=== PATIENT | female | born 1965 | race Caucasian/White ===

== ENCOUNTER 2016-04-08 07:01 | Day surgery (SDC) | payer MEDICAID ==
[2016-04-08] MEDS ORDERED: LACTATED RINGERS 1,000 ML IV ONE (07:27)
[2016-04-08] MEDS ORDERED: fentaNYL 250 MCG/5 ML VIAL IVP ONE (12:00)
[2016-04-08] MEDS ORDERED: MIDAZOLAM 2 MG/2 ML VIAL IVP ONE (12:00)
== END 2016-04-08 07:02 | disposition home or self-care (01) ==
PROC: 0DJD8ZZ Inspection of Lower Intestinal Tract, Via Natural or Artificial Opening Endoscopic (ICD-10-PCS; principal; 2016-04-08 08:00)
DX: Z12.11 Encounter for screening for malignant neoplasm of colon (principal); I10 Essential (primary) hypertension; Z79.82 Long term (current) use of aspirin; Z88.5 Allergy status to narcotic agent
CPT/HCPCS: 45378; J3010; J7120

== ENCOUNTER 2016-08-03 10:08 | Emergency (ER) | payer MEDICAID ==
[2016-08-03 10:15] VITALS: BP 147/89
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
--- NOTE | 2016-08-03 11:42 | XRAY Preliminary Report ---
Exam: XR Elbow 3 View RT IMPRESSION: There is mildly displaced right radial head fracture. No evidence of dislocation. [facility] SITE ID: [id number]
--- NOTE | 2016-08-03 11:45 | XRAY Report ---
EXAM: RIGHT ELBOW RADIOGRAPHY EXAM DATE: 08/03/2016 11:15 AM. CLINICAL HISTORY: Fell 8 days ago; Pain right radial elbow. COMPARISON: None. TECHNIQUE: 3 views. FINDINGS: Bones: There is mildly displaced fracture through the radial head. Joints: No evidence of dislocation. Posterior fat pad displacement indicates persistent effusion. Soft Tissues: Normal. No soft tissue swelling. IMPRESSION: There is mildly displaced right radial head fracture. No evidence of dislocation. [facility] Referring Provider Line: [phone] SITE ID: [id number]
== END 2016-08-03 12:33 | disposition home or self-care (01) ==
LOC: ED 10:08
DX: S52.121A Displaced fracture of head of right radius, initial encounter for closed fracture (principal); W01.0XXA Fall on same level from slipping, tripping and stumbling without subsequent striking against object, initial encounter; Z79.82 Long term (current) use of aspirin
CPT/HCPCS: 29105; 99283

== ENCOUNTER 2016-11-10 14:00 | Outpatient (CLI) | payer MEDICAID | END 2016-11-10 14:01 | disposition critical access hospital (66) | LOC: EMS 14:00 | PROVIDERS: ATTEND Surgery | DX: S01.01XA Laceration without foreign body of scalp, initial encounter (principal); M25.551 Pain in right hip; M25.521 Pain in right elbow; Y04.2XXA Assault by strike against or bumped into by another person, initial encounter; W18.39XA Other fall on same level, initial encounter; Y92.481 Parking lot as the place of occurrence of the external cause | CPT/HCPCS: A0425; A0429 ==

== ENCOUNTER 2016-11-10 14:15 | Emergency (ER) | payer MEDICAID ==
[2016-11-10] MEDS ORDERED: TETANUS/DIPHTHERIA/PERTUSSIS 0.5 ML SYRINGE IM ONE ×2 (14:21→14:51)
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
--- NOTE | 2016-11-10 15:14 | XRAY Preliminary Report ---
Exam: XR Hip w/Pelvis 2-3V RT IMPRESSION: 1. Negative for acute fracture and subluxation. Chronic spurring of the right femoral head and neck w ith joint space narrowing. [facility] SITE ID: [id number]
--- NOTE | 2016-11-10 15:16 | XRAY Preliminary Report ---
Exam: XR Elbow 3 View RT IMPRESSION: 1. Chronic appearing deformity of proximal radius suggesting old radial head fracture versus developm ental variant. No acute fracture or joint effusion. [facility] SITE ID: [id number]
--- NOTE | 2016-11-10 15:17 | XRAY Report ---
EXAM: RIGHT HIP AND PELVIS RADIOGRAPHY EXAM DATE: 11/10/2016 03:07 PM. HISTORY: Hip pain fall. COMPARISONS: None. TECHNIQUE: 1 view of the pelvis and 1 view of the hip. FINDINGS: Bones: No acute fracture is demonstrated. There is qhrx-il-hdlsdupo spurring on the lateral aspect of the right femoral head. Joints: There is joint space narrowing in the superior right hip joint. Soft Tissues: There are vascular calcifications in the left pelvis. IMPRESSION: 1. Negative for acute fracture and subluxation. Chronic spurring of the right femoral head and neck w ith joint space narrowing. [facility] Referring Provider Line: [phone] SITE ID: [id number]
--- NOTE | 2016-11-10 15:19 | XRAY Report ---
EXAM: RIGHT ELBOW RADIOGRAPHY EXAM DATE: 11/10/2016 03:05 PM. CLINICAL HISTORY: Elbow pain, fall. COMPARISON: None. TECHNIQUE: 3 views. FINDINGS: Bones: There is a corticated lucency at the articular surface of the proximal radial head. No acute f racture. Joints: Alignment is satisfactory. No posterior fat pad sign seen. Soft Tissues: Normal. No soft tissue swelling. IMPRESSION: 1. Chronic appearing deformity of proximal radius suggesting old radial head fracture versus developm ental variant. No acute fracture or joint effusion. [facility] Referring Provider Line: [phone] SITE ID: [id number]
--- NOTE | 2016-11-10 15:43 | CT Preliminary Report ---
Exam: CT Head W/O IMPRESSION: 1. Small posterior right scalp hematoma. No fracture. 2. Negative for intracranial hemorrhage or other focal acute intracranial abnormality. [facility] SITE ID: [id number]
--- NOTE | 2016-11-10 15:46 | CT Report ---
EXAM: CT HEAD EXAM DATE: 11/10/2016 03:12 PM. CLINICAL HISTORY: Trauma with head injury. COMPARISON: None. TECHNIQUE: Multiaxial CT images were obtained from the foramen magnum to the vertex. IV contrast: Non e. Reformats: Coronal. In accordance with CT protocol optimization, one or more of the following dose reduction techniques w ere utilized for this exam: automated exposure control, adjustment of mA and/or KV based on patient s ize, or use of iterative reconstructive technique. FINDINGS: Parenchyma: No intraparenchymal hemorrhage. No evidence of mass, midline shift, or CT findings of inf arction. Yepez-white differentiation is distinct. Extraaxial Spaces: Normal for age. No subdural or epidural collections identified. Ventricles: Normal in size and position. Sinuses: Imaged paranasal sinuses, orbits, and mastoids show no significant abnormality. Bones: There is a small posterior right scalp hematoma. No calvarium fracture. Other: None. IMPRESSION: 1. Small posterior right scalp hematoma. No fracture. 2. Negative for intracranial hemorrhage or other focal acute intracranial abnormality. [facility] Referring Provider Line: [phone] SITE ID: [id number]
--- NOTE | 2016-11-10 15:47 | CT Preliminary Report ---
Exam: CT Facial Bones W/O IMPRESSION: 1. No facial fracture. 2. Trace fluid in the right maxillary sinus. [facility] SITE ID: [id number]
--- NOTE | 2016-11-10 15:50 | CT Report ---
EXAM: CT MAXILLOFACIAL WITHOUT CONTRAST EXAM DATE: 11/10/2016 03:09 PM. CLINICAL HISTORY: Jaw pain, injury. COMPARISONS: None. TECHNIQUE: Thin-section axial images were acquired of the face without contrast. Post-processing: Cor onal and sagittal reformats. Other: None. In accordance with CT protocol optimization, one or more of the following dose reduction techniques w ere utilized for this exam: automated exposure control, adjustment of mA and/or KV based on patient s ize, or use of iterative reconstructive technique. FINDINGS: Bones: No fracture or bone lesion. Temporomandibular Joints: The temporomandibular joints are symmetric and normally located. Sinuses: There is a small mucous retention cyst in the left maxillary sinus. There is a trace amount of fluid in the right maxillary sinus. Mastoid sinuses appear clear. Other: None. IMPRESSION: 1. No facial fracture. 2. Trace fluid in the right maxillary sinus. [facility] Referring Provider Line: [phone] SITE ID: [id number]
--- NOTE | 2016-11-10 15:53 | CT Preliminary Report ---
Exam: CT Cervical Spine W/O IMPRESSION: Degenerative disk disease of the mid cervical spine without acute fracture. [facility] SITE ID: [id number]
--- NOTE | 2016-11-10 15:56 | CT Report ---
EXAM: CT CERVICAL SPINE WITHOUT CONTRAST DATE: 11/10/2016 03:25 PM HISTORY: Neck pain fall. COMPARISONS: None. TECHNIQUE: Thin-section axial images were acquired of the cervical spine without contrast. Post-proce ssing: Coronal and sagittal reformats. Other: None. In accordance with CT protocol optimization, one or more of the following dose reduction techniques w ere utilized for this exam: automated exposure control, adjustment of mA and/or KV based on patient s ize, or use of iterative reconstructive technique. FINDINGS: Alignment: There is 2 mm of anterolisthesis at C4-C5. There is straightening of lower cervical spine lordosis. Bones: Negative for fracture. No destructive bony abnormality. Interspace Levels/Facets: There is moderate bilateral facet degenerative disease and joint space narrowing. There is mild to mo derate disk height loss with disk osteophyte spurring at C5-C6 and C6-C7. Musculature: Normal. No fatty atrophy. Other: No apical pneumothorax. Trachea is midline. No paravertebral hematoma. IMPRESSION: Degenerative disk disease of the mid cervical spine without acute fracture. [facility] Referring Provider Line: [phone] SITE ID: [id number]
[2016-11-10 16:17] VITALS: BP 176/115
== END 2016-11-10 16:16 | disposition home or self-care (01) ==
LOC: EDUNIT# → ED 14:15
DX: S16.1XXA Strain of muscle, fascia and tendon at neck level, initial encounter (principal); S50.01XA Contusion of right elbow, initial encounter; S70.01XA Contusion of right hip, initial encounter; S00.03XA Contusion of scalp, initial encounter; S00.83XA Contusion of other part of head, initial encounter; S50.311A Abrasion of right elbow, initial encounter; S00.01XA Abrasion of scalp, initial encounter; Y04.2XXA Assault by strike against or bumped into by another person, initial encounter; R03.0 Elevated blood-pressure reading, without diagnosis of hypertension; Z79.82 Long term (current) use of aspirin; Z23 Encounter for immunization
CPT/HCPCS: 70450; 70486; 72125; 90471; 99283

== ENCOUNTER → 2017-01-12 | Outpatient (CLI) | payer MEDICAID ==
--- NOTE | 2017-01-26 15:33 | Mammography Report ---
DATE OF SERVICE: 01/12/2017 EXAMINATION: Screening digital mammogram bilateral 01/12/2017 INDICATION: A 51-year-old with personal history of benign right breast biopsy for screening. COMPARISON: Films from [place], [place] dated 07/10/2013. TECHNIQUE: Routine CC and MLO projections were obtained of the breasts. FINDINGS: The breasts demonstrate scattered fibroglandular densities bilaterally. Post-biopsy changes in the right breast are stable; no suspicious masses, clustered microcalcifications, or regions of architectural distortion are identified. IMPRESSION: Benign findings. RECOMMENDATIONS: Routine annual screening unless otherwise clinically indicated. BIRADS category 2 - Benign findings. STANDARD QUALIFYING STATEMENTS 1. This examination was reviewed with the aid of Computed-Aided Detection (CAD) . 2. A negative or benign imaging report should not delay biopsy if clinically suspicious findings are present. Consider surgical consultation if warranted. More than 5% of cancers are not identified by imaging. 3. Dense breasts may obscure an underlying neoplasm. TD: 01/25/2017 16:34 [facility]
== END ==
LOC: DI.S 15:15
PROVIDERS: ATTEND Nurse Practitioner Family
DX: Z12.31 Encounter for screening mammogram for malignant neoplasm of breast (principal)
CPT/HCPCS: 77067

== ENCOUNTER 2017-01-14 08:16 | Outpatient (CLI) | payer MEDICAID ==
[2017-01-14 10:57] LABS: BASOPHILS # (AUTO) 0.1 10^3/uL (0.0-0.1); BASOPHILS % (AUTO) 1.4 %; EOSINOPHILS # (AUTO) 0.3 10^3/uL (0.0-0.7); EOSINOPHILS % (AUTO) 3.8 %; HCT - HEMATOCRIT 42.9 % (37.0-47.0); HGB - HEMOGLOBIN 14.2 g/dL (12.0-16.0); LYMPHOCYTES # (AUTO) 1.9 10^3/uL (1.5-3.5); LYMPHOCYTES % (AUTO) 26.7 %; MEAN CORPUSCULAR HEMOGLOBIN 29.7 pg (27.0-31.0); MEAN CORPUSCULAR HGB CONC 33.2 g/dL (32.0-36.0); MEAN CORPUSCULAR VOLUME 89.5 fL (81.0-99.0); MEAN PLATELET VOLUME 7.5 fL (7.9-10.8); MONOCYTES # (AUTO) 0.4 10^3/uL (0.0-1.0); MONOCYTES % (AUTO) 5.7 %; NEUTROPHILS # (AUTO) 4.5 10^3/uL (1.5-6.6); NEUTROPHILS % (AUTO) 62.4 %; NUCLEATED RED BLOOD CELLS AUTO 0.1 /100WBC; RED BLOOD COUNT 4.79 10^6/uL (4.20-5.40); RED CELL DISTRIBUTION WIDTH 14.8 % (12.0-15.0); UNCORRECTED WHITE BLOOD COUNT 7.2 x10^3/uL; WHITE BLOOD COUNT 7.2 x10^3/uL (4.8-10.8)
[2017-01-14 11:15] LABS: ALBUMIN/GLOBULIN RATIO 1.2 (1.0-2.2); BILIRUBIN,TOTAL 0.6 mg/dL (0.2-1.0); BUN - BLOOD UREA NITROGEN 16 mg/dL (6-20); CALCIUM 9.5 mg/dL (8.5-10.3); CARBON DIOXIDE - CO2 25 mmol/L (21-32); CHLORIDE 102 mmol/L (101-111); CHOL/HDL RATIO 2.6 (<4.4); CHOLESTEROL 247 mg/dL; CREATININE 0.9 mg/dL (0.4-1.0); GFR - MDRD 65 (>89); GLUCOSE 89 mg/dL (70-100); HDL CHOLESTEROL 94 mg/dL; LDL/HDL RATIO 1.4 (<4.4); POTASSIUM 4.1 mmol/L (3.5-5.0); SODIUM 137 mmol/L (135-145); TOTAL PROTEIN 7.7 g/dL (6.7-8.2); TRIGLYCERIDES 88 mg/dL; VLDL CHOLESTEROL 18 mg/dL
== END 2017-01-14 08:17 | disposition home or self-care (01) ==
LOC: LAB.F 08:16
PROVIDERS: ATTEND Nurse Practitioner Family
DX: F32.9 Major depressive disorder, single episode, unspecified (principal); Z13.6 Encounter for screening for cardiovascular disorders
CPT/HCPCS: 36415; 80053; 80061; 84443; 85025

== ENCOUNTER 2019-03-06 14:50 | Outpatient (CLI) | payer MEDICAID ==
--- NOTE | 2019-03-06 17:06 | Mammography Report ---
Reason: ROUTINE MAMMO Procedure Date: 03/06/2019 Accession Number: [id number] / [id number] Procedure: ZECHARIAH - Screening Mammo w/[place] CPT Code: Final Report FULL RESULT: EXAM: Screening Mammo w/[place] DATE: 03/06/2019 3:32 PM CLINICAL HISTORY: Routine screening, prior history right breast biopsy. TECHNIQUE: (B) - Bilateral CC and MLO views were obtained. COMPARISON: 01/12/2017, 07/10/2013 PARENCHYMAL PATTERN: (A) - The breasts demonstrate scattered fibroglandular densities bilaterally. FINDINGS: No significant interval change. There are no suspicious masses, calcifications, or areas of distortion. IMPRESSION: Negative examination. BI-RADS category 1. RECOMMENDATION: (ANNUAL) - Recommend routine annual screening mammography. BI-RADS CATEGORY: (1) - Negative. STANDARD QUALIFYING STATEMENTS: 1. This examination was not reviewed with the aid of Computer-Aided Detection (CAD). 2. A negative or benign imaging report should not preclude biopsy if clinically suspicious findings are present. 3. Dense breasts may obscure an underlying neoplasm. 4. This examination was reviewed with the aid of 3D breast imaging (tomosynthesis).
== END 2019-03-06 14:51 | disposition home or self-care (01) ==
LOC: DI 14:50
PROVIDERS: ATTEND Registered Nurse
DX: Z12.31 Encounter for screening mammogram for malignant neoplasm of breast (principal)
CPT/HCPCS: 77063; 77067

== ENCOUNTER 2019-03-06 14:52 | Outpatient (CLI) | payer MEDICAID ==
--- NOTE | 2019-03-07 15:59 | DEXA Report ---
Reason: OSTEOARTHRITIS Procedure Date: 03/06/2019 Accession Number: [id number] / [id number] Procedure: DEX - Dexa Spine and/or Hip CPT Code: Final Report FULL RESULT: EXAM: Dexa Spine and/or Hip DATE: 03/06/2019 3:42 PM CLINICAL HISTORY: Postmenopausal. TECHNIQUE: Dual energy x-ray absorptiometry (DXA) was performed on a [employer] System. Regions measured are the AP Spine, femoral neck, and if needed forearm. COMPARISON: None. In accordance with the International Society for Clinical Densitometry (ISCD) guidelines, data from previous exams may be reanalyzed using current recommendations and techniques. This is done to allow a more accurate basis for comparison with the current study. FINDINGS: The data for the lumbar spine is as follows: BMD (g/cm/cm) T-SCORE Z-SCORE REGION L1 1.011 -1.0 -0.5 L2 1.028 -1.4 -0.9 L3 1.168 -0.3 0.3 L4 1.054 -1.2 -0.7 TOTAL 1.068 -0.9 -0.4 NOTE: All evaluable vertebrae are used for classification The data for the hip is as follows: BMD (g/cm/cm) T-SCORE Z-SCORE REGION Neck 0.888 -1.1 -0.2 TOTAL 0.941 -0.5 -0.1 NOTE: The femoral neck or total proximal femur, whichever is lowest, is used for classification. IMPRESSION: THE WHO CLASSIFICATION BASED ON THE INTERNATIONAL REFERENCE STANDARD IS OSTEOPENIA. THE FRACTURE RISK IS INCREASED. RECOMMENDATION: Patients with diagnosis of osteoporosis or osteopenia should have regular bone mineral density assessment. For those eligible for Medicare, routine testing is allowed once every 2 years. Testing frequency can be increased for patients who have rapidly progressing disease or for those who are receiving medical therapy to restore bone mass. COMMENT: World Health Organization (WHO) definitions for osteoporosis and osteopenia: NORMAL BMD: T-score at -1.0 or higher, fracture risk is low OSTEOPENIA BMD: T-score between -1.0 and -2.5, fracture risk is increased. OSTEOPOROSIS BMD: T-score at -2.5 or lower, fracture risk is high. National Osteoporosis Foundation recommends: 1. Obtain adequate dietary calcium (at least 1200 mg per day) and vitamin D (400-800 international units per day). 2. Participate, as appropriate, in regular weightbearing and muscle-strengthening exercise. 3. Avoid tobacco use and reduce alcohol and caffeine intake. 4. For more detailed information see the website at www.NOF.org.
== END 2019-03-06 14:53 | disposition home or self-care (01) ==
LOC: DI 14:52
PROVIDERS: ATTEND Registered Nurse
DX: M85.88 Other specified disorders of bone density and structure, other site (principal)
CPT/HCPCS: 77080

== ENCOUNTER 2019-04-09 07:01 | Outpatient (CLI) | payer MEDICAID ==
[2019-04-09 10:15] LABS: BASOPHILS # (AUTO) 0.1 10^3/uL (0.0-0.1); BASOPHILS % (AUTO) 1.5 %; EOSINOPHILS # (AUTO) 0.4 10^3/uL (0.0-0.7); HGB - HEMOGLOBIN 13.4 g/dL (12.0-16.0); LYMPHOCYTES # (AUTO) 2.6 10^3/uL (1.5-3.5); LYMPHOCYTES % (AUTO) 35.6 %; MEAN CORPUSCULAR HEMOGLOBIN 29.1 pg (27.0-31.0); MEAN CORPUSCULAR HGB CONC 30.9 g/dL (32.0-36.0); MEAN CORPUSCULAR VOLUME 94.3 fL (81.0-99.0); MEAN PLATELET VOLUME 9.6 fL (7.9-10.8); MONOCYTES # (AUTO) 0.6 10^3/uL (0.0-1.0); MONOCYTES % (AUTO) 8.6 %; NEUTROPHILS # (AUTO) 3.6 10^3/uL (1.5-6.6); PLT - PLATELET COUNT 414 10^3/uL (130-450); WHITE BLOOD COUNT 7.3 x10^3/uL (4.8-10.8)
[2019-04-09 10:49] LABS: ALBUMIN 4.2 g/dL (3.2-5.5); ALBUMIN/GLOBULIN RATIO 1.4 (1.0-2.2); ALKALINE PHOSPHATASE 38 IU/L (42-121); ALT ALANINE AMINOTRANSFERASE 27 IU/L (10-60); AST ASPARTATE AMINOTRANSFERASE 42 IU/L (10-42); BILIRUBIN,TOTAL 0.4 mg/dL (0.2-1.0); BUN - BLOOD UREA NITROGEN 20 mg/dL (6-20); CALCIUM 9.4 mg/dL (8.5-10.3); CARBON DIOXIDE - CO2 27 mmol/L (21-32); CHLORIDE 100 mmol/L (101-111); CHOLESTEROL 190 mg/dL; CREATININE 0.8 mg/dL (0.4-1.0); GFR - MDRD 74 (>89); GLUCOSE 90 mg/dL (70-100); HDL CHOLESTEROL 93 mg/dL; LDL CHOLESTEROL,CALCULATED 88 mg/dL; LDL/HDL RATIO 0.9 (<4.4); SODIUM 135 mmol/L (135-145); TOTAL PROTEIN 7.2 g/dL (6.7-8.2); VLDL CHOLESTEROL 9 mg/dL
[2019-04-11 12:35] LABS: HEPATITIS C ANTIBODY NON-REACTIVE (NON-REACTIVE)
[2019-04-11 13:47] LABS: HIV AG/AB 4TH GEN NON-REACTIVE (NON-REACTIVE)
== END 2019-04-09 07:02 | disposition home or self-care (01) ==
LOC: LAB.S 07:01
PROVIDERS: ATTEND Registered Nurse
DX: Z00.00 Encounter for general adult medical examination without abnormal findings (principal); Z13.0 Encounter for screening for diseases of the blood and blood-forming organs and certain disorders involving the immune mechanism; Z13.228 Encounter for screening for other metabolic disorders; Z13.29 Encounter for screening for other suspected endocrine disorder; Z20.2 Contact with and (suspected) exposure to infections with a predominantly sexual mode of transmission
CPT/HCPCS: 36415; 80053; 80061; 83721; 84443; 85025; 86803; 87389

== ENCOUNTER 2019-06-29 09:04 | Emergency (ER) | payer MEDICAID ==
[2019-06-29 09:29] LABS: BILIRUBIN,URINE NEGATIVE (NEGATIVE); GLUCOSE, URINE (UA) NEGATIVE (NEGATIVE); KETONES,URINE (UA) NEGATIVE (NEGATIVE); LEUKOCYTE ESTERASE, URINE LARGE (NEGATIVE); NITRITE,URINE NEGATIVE (NEGATIVE); OCCULT BLOOD,URINE SMALL (NEGATIVE); PROTEIN,URINE 100 mg/dL (NEGATIVE); UROBILINOGEN,URINE 0.2 (NORMAL) E.U./dL (NORMAL)
[2019-06-29 09:32] LABS: CLARITY,URINE SL. CLOUDY (CLEAR)
[2019-06-29] MEDS ORDERED: KETOROLAC 30 MG/ML VIAL IVP STA (09:32)
[2019-06-29] MEDS ORDERED: SODIUM CHLORIDE 0.9% 1,000 ML IV ONE (09:32)
[2019-06-29 09:37] LABS: BACTERIA,URINE Few /HPF (None Seen); RBC,URINE 0-5 /HPF (0-5); SQUAMOUS EPITHELIAL CELL,UR NONE SEEN (<= Few)
[2019-06-29] MEDS ORDERED: cefTRIAXone 1 GM in SODIUM CHLORIDE 0.9% MINIBAG 100 ML IV STA (09:45)
[2019-06-29 10:07] LABS: BASOPHILS # (AUTO) 0.1 10^3/uL (0.0-0.1); BASOPHILS % (AUTO) 0.9 %; EOSINOPHILS # (AUTO) 0.1 10^3/uL (0.0-0.7); EOSINOPHILS % (AUTO) 0.9 %; HGB - HEMOGLOBIN 14.9 g/dL (12.0-16.0); LYMPHOCYTES # (AUTO) 2.1 10^3/uL (1.5-3.5); MEAN CORPUSCULAR HEMOGLOBIN 29.8 pg (27.0-31.0); MEAN CORPUSCULAR VOLUME 90.4 fL (81.0-99.0); MEAN PLATELET VOLUME 9.6 fL (7.9-10.8); MONOCYTES # (AUTO) 0.9 10^3/uL (0.0-1.0); MONOCYTES % (AUTO) 6.7 %; NEUTROPHILS # (AUTO) 10.5 10^3/uL (1.5-6.6); NEUTROPHILS % (AUTO) 76.1 %; PLT - PLATELET COUNT 397 10^3/uL (130-450); RED CELL DISTRIBUTION WIDTH 14.2 % (12.0-15.0); WHITE BLOOD COUNT 13.8 x10^3/uL (4.8-10.8)
--- NOTE | 2019-06-29 10:08 | ED Physician Documentation ---
PD HPI BACK PAIN - Stated complaint Stated Complaint: BACK PX - Chief complaint Chief Complaint: Back Pain - History obtained from History obtained from: Patient - History of Present Illness Timing - onset: Enter time (1999), Last night Timing - duration: Hours Timing - details: Abrupt onset, Still present Location: Mid, Right Quality: Pain, Spasm, Sharp Associated symptoms: No: Fever, Weakness, Numbness, Incontinent of urine, Unable to urinate, Hematuria, Incontinent of stool Improves with: Rest Worsened by: Movement Contributing factors: Other (no trauma, no excessive use, no use of mask for extended period) Similar symptoms before: Has not had sx before Recently seen: Not recently seen - Additional information Additional information: Previously well 53-year-old female has developed pain in her right flank beginning about 8 PM yesterday evening. She states the pain came out of nowhere and ramped up quite rapidly she states it is odd pain to her she feels that she is having worse pain when she is moving around and she feels that if she lays on her right side the pain will radiate down into her right lower quadrant. She has not had a fever or vomiting. She has not had a cough. Review of Systems Constitutional: denies: Fever Eyes: denies: Decreased vision Ears: denies: Ear pain Nose: denies: Rhinorrhea / runny nose, Congestion Throat: denies: Sore throat Cardiac: denies: Chest pain / pressure, Palpitations Respiratory: denies: Dyspnea, Cough GI: reports: Abdominal Pain, Nausea. denies: Vomiting, Constipation, Diarrhea : denies: Dysuria, Frequency Skin: denies: Rash Musculoskeletal: reports: Back pain. denies: Neck pain, Extremity pain PD PAST MEDICAL HISTORY - Past Medical History Cardiovascular: None Respiratory: None Endocrine/Autoimmune: None GI: None : None HEENT: None Psych: Depression, Anxiety, Panic attacks, Post traumatic stress disorder Musculoskeletal: Other Derm: Rosacea - Past Surgical History Past Surgical History: Yes Ortho: Other /DIRECTOR PROJECT MANAGEMENT: Other - Present Medications Home Medications: Ambulatory Orders Medication Instructions Recorded Confirmed Aspirin [Aspir-Low] 81 mg PO DAILY 04/07/16 11/10/16 Butalbital/Acetaminophen 1 each PO PRN PRN 04/07/16 11/10/16 [Acetaminophn-Butalbital 325-50] Fluoxetine HCl 40 mg PO DAILY 04/07/16 11/10/16 Propranolol [Inderal] 40 mg PO DAILY 04/07/16 11/10/16 Vit A and D3 in Cod Liver Oil [Cod 1,000 mg PO DAILY 04/07/16 11/10/16 Liver Oil Softgel] Albuterol Sulf [Ventolin Hfa 1 inh INH .FREQ PRN 04/08/16 11/10/16 Inhaler] HYDROcod/ACETAM 5/325 [Vicodin 1 - 2 ea PO Q6H PRN #15 tablet 08/03/16 11/10/16 5/325] HYDROcod/ACETAM 5/325 [Grahn 5/325] 1 - 2 ea PO Q6H PRN #15 tablet 11/10/16 Hydrocodone/Acetaminophen 1 - 2 each PO Q6H PRN #14 tablet 06/29/19 [Hydrocodon-Acetaminophen 5-325] Sulfamethoxazole/Trimethoprim 1 each PO BID #14 tablet 06/29/19 [Sulfamethoxazole-Tmp Ds Tablet] - Allergies Allergies/Adverse Reactions: Allergies Allergy/AdvReac Type Severity Reaction Status Date / Time codeine AdvReac Severe passed out Verified 08/03/16 10:15 - Social History Does the pt smoke?: No Smoking Status: Never smoker Does the pt drink ETOH?: Yes Does the pt have substance abuse?: No - Immunizations Immunizations are current?: Yes - POLST Patient has POLST: No PD ED PE NORMAL - Vitals Vital signs reviewed: Yes (Hypertensive) - General General: Alert and oriented X 3, No acute distress, Well developed/nourished - HEENT HEENT: Atraumatic, PERRL, EOMI - Neck Neck: Supple, no meningeal sign - Cardiac Cardiac: RRR, No murmur - Respiratory Respiratory: No respiratory distress, Clear bilaterally - Abdomen Abdomen: Normal bowel sounds, Soft, Non tender, Non distended, No organomegaly - Back Back: No spinal TTP, Other (Mild right flank tenderness to bimanual palpation of the right kidney.) - Derm Derm: Normal color, Warm and dry, No rash - Extremities Extremities: No deformity, No edema - Neuro Neuro: Alert and oriented X 3, recycling sorter 2-12 intact, No motor deficit, No sensory deficit, Normal speech Eye Opening: Spontaneous Motor: Obeys Commands Verbal: Oriented GCS Score: 15 - Psych Psych: Normal mood, Normal affect Results - Vitals Vitals: Vital Signs - 24 hr 06/29/19 09:05 Temperature 37.1 C Heart Rate 87 Respiratory 18 Rate Blood Pressure 169/93 H O2 Saturation 99 Oxygen O2 Source Room air - Labs Labs: Laboratory Tests 06/29/19 06/29/19 06/29/19 09:12 09:43 09:43 WBC 13.8 H RBC 5.00 Hgb 14.9 Hct 45.2 MCV 90.4 MCH 29.8 MCHC 33.0 RDW 14.2 Plt Count 397 MPV 9.6 Neut # (Auto) 10.5 H Lymph # (Auto) 2.1 [place] # (Auto) 0.9 Eos # (Auto) 0.1 Baso # (Auto) 0.1 Absolute Nucleated RBC 0.00 Nucleated RBC % 0.0 Sodium 136 Potassium 3.8 Chloride 100 L Carbon Dioxide 25 Anion Gap 11.0 BUN 20 Creatinine 0.8 Estimated GFR (MDRD) 74 L Glucose 113 H Calcium 9.3 Total Bilirubin 0.6 AST 17 ALT 18 Alkaline Phosphatase 45 Total Protein 7.5 Albumin 4.3 Globulin 3.2 Albumin/Globulin Ratio 1.3 Lipase 22 Urine Color YELLOW Urine Clarity SL. CLOUDY Urine pH 7.0 Ur Specific [place] 1.020 Urine Protein 100 H Urine Glucose (UA) NEGATIVE Urine Ketones NEGATIVE Urine Occult Blood SMALL H Urine Nitrite NEGATIVE Urine Bilirubin NEGATIVE Urine Urobilinogen 0.2 (NORMAL) Ur Leukocyte Esterase LARGE H Urine RBC 0-5 Urine WBC >25 H Ur Squamous Epith Cells NONE SEEN Urine Bacteria Few Ur Microscopic Review INDICATED Urine Culture Comments INDICATED - Rads (name of study) CT ab/pel w/o Radiology: Prelim report reviewed (Impression: 1. Moderate right hydronephrosis with perirenal and periureteral stranding and fluid. There is a 4 mm right pelvic calcification which may be in the distal ureter just above the ureterovesicular junction. The pelvis is obscured by right hip arthroplasty. 2 Normal appendix.), EMP read indepedently, See rad report Procedures - Bedside sono Bedside sono by EMP: With use of bedside ultrasound the right kidney is imaged there is approximately 1 cm of hydronephrosis demonstrated. The kidney does not appear sonographically tender. PD MEDICAL DECISION MAKING - ED course Complexity details: reviewed results, re-evaluated patient, considered differential, d/w patient ED course: 53-year-old female on initial evaluation appears to have painful right flank pain she has some mild tenderness and on bedside appears to have hydronephrosis. A CT scan of the abdomen pelvis is ordered. Her urine does appear infected and she is administered Rocephin intravenously. She is administered a liter of saline and 30 mg of Toradol as well.She does not get much relief with the use of the Toradol. She does appear to have a 4 mm distal stone with some hydronephrosis and I have referred her to urology in [place] for follow-up we will place her on antibiotic and pain medication and instruct her to hydrate excessively and expect the stone to pass within 1 to 2 days. If she becomes ill we will ask her to return to the hospital. Departure - Departure Disposition: 01 Home, Self Care Clinical Impression: Pyelonephritis, Ureterolithiasis Condition: Stable Instructions: ED Kidney Infec Female, ED Stone Renal W Colic Follow-Up: Anamika Crow ARNP [Primary Care Provider] - Germain Calle MD [Provider Admit Priv/Credential] - Prescriptions: Hydrocodone/Acetaminophen [Hydrocodon-Acetaminophen 5-325] 1 - 2 each PO Q6H PRN #14 tablet PRN Reason: pain Sulfamethoxazole/Trimethoprim [Sulfamethoxazole-Tmp Ds Tablet] 1 each PO BID #14 tablet
[2019-06-29 10:17] LABS: ALBUMIN 4.3 g/dL (3.2-5.5); ALBUMIN/GLOBULIN RATIO 1.3 (1.0-2.2); BILIRUBIN,TOTAL 0.6 mg/dL (0.2-1.0); CALCIUM 9.3 mg/dL (8.5-10.3); CREATININE 0.8 mg/dL (0.4-1.0); TOTAL PROTEIN 7.5 g/dL (6.7-8.2)
--- NOTE | 2019-06-29 10:30 | CT Report ---
Reason: right flank pain hydro on bedside Procedure Date: 06/29/2019 Accession Number: [id number] / [id number] Procedure: CT - Abdomen/Pelvis WO CPT Code: Final Report FULL RESULT: EXAM: CT ABDOMEN AND PELVIS EXAM DATE: 06/29/2019 09:59 AM. CLINICAL HISTORY: Right flank pain hydro on bedside. COMPARISONS: ABDOMEN/PELVIS W/O 09/24/2013 3:14 AM. TECHNIQUE: Routine helical CT imaging was performed through the abdomen and pelvis. IV contrast: None. Enteric contrast: No. Reconstructions: Coronal and sagittal. In accordance with CT protocol optimization, one or more of the following dose reduction techniques were utilized for this exam: automated exposure control, adjustment of mA and/or KV based on patient size, or use of iterative reconstructive technique. FINDINGS: Lung Bases: Mild bibasilar atelectasis. Small hiatal hernia Liver: Normal. No masses. Gallbladder/Bile Ducts: Unremarkable. Spleen: Normal. Pancreas: Normal. Adrenal Glands: Normal. Kidneys: Right kidney moderate hydroureteronephrosis with perirenal and periureteral stranding and fluid. There is a 4 mm right pelvic calcification which may be in the distal ureter just above the ureterovesical junction. There are other small pelvic calcifications. Pelvis is obscured by the right hip arthroplasty. Peritoneal Cavity/Bowel: diverticulosis . No free fluid, free air or adenopathy. No masses or acute inflammatory process. The appendix is well visualized and normal. Pelvic Organs: Normal. The bladder and visualized pelvic organs are within normal limits. Vasculature: No aneurysms or other significant abnormality. Bones: Right hip arthroplasty Other: None. IMPRESSION: 1. Moderate right hydroureteronephrosis with perirenal and periureteral stranding and fluid. There is a 4 mm right pelvic calcification which may be in the distal ureter just above the ureterovesical junction. The pelvis is obscured by the right hip arthroplasty. 2. Normal appendix RADIA
[2019-06-29 11:13] VITALS: BP 135/82
== END 2019-06-29 11:12 | disposition home or self-care (01) ==
LOC: ED 09:04
DX: N12 Tubulo-interstitial nephritis, not specified as acute or chronic (principal); N13.2 Hydronephrosis with renal and ureteral calculous obstruction; R03.0 Elevated blood-pressure reading, without diagnosis of hypertension; Z79.82 Long term (current) use of aspirin
CPT/HCPCS: 36415; 74176; 80053; 81001; 81003; 83690; 85025; 87077; 87086; 87181; 96365; 96375; 99284

== ENCOUNTER 2019-07-23 17:58 | Outpatient (CLI) | payer MEDICAID ==
--- NOTE | 2019-07-24 11:29 | Ultrasound Report ---
Reason: KIDNEY CALCULUS Procedure Date: 07/23/2019 Accession Number: [id number] / [id number] Procedure: US - Retroperitoneal CPT Code: Final Report FULL RESULT: PROCEDURE: Retroperitoneal INDICATIONS: KIDNEY CALCULUS TECHNIQUE: Real-time scanning was performed of the retroperitoneal organs, with image documentation. COMPARISON: None. FINDINGS: CT abdomen pelvis 04/29/2019 Kidneys: Kidneys are normal in size. Right kidney measures 10.8 cm long; left kidney measures 10.5 cm long. Right renal cortical thickness is 0.7 cm; left renal cortical thickness is 0.9 cm. No solid masses. There is persistent bilateral pelviocaliectasis right greater than left. There is dilation of the visualized renal pelvis measuring 16 mm on the right and 15 mm on the left. It is noted that pelviocaliectasis persists post void. No stones are identified. Miscellaneous: No free abdominal fluid. IMPRESSION: 1. Persistent pre and post void pelviocaliectasis as above. This is markedly improved particularly on the right compared to prior CT exam. No gross hydronephrosis. No visualized renal calcification. Reviewed by: Maribeth Trujillo MD on 07/24/2019 11:27 AM PDT Approved by: Maribeth Trujillo MD on 07/24/2019 11:27 AM PDT Station ID: [id number]
== END 2019-07-23 17:59 | disposition home or self-care (01) ==
LOC: DI 17:58
PROVIDERS: ATTEND Naturopath
DX: N13.30 Unspecified hydronephrosis (principal)
CPT/HCPCS: 76770

== ENCOUNTER 2019-08-22 12:06 | Outpatient (CLI) | payer MEDICAID ==
--- NOTE | 2019-08-22 16:02 | CT Report ---
PROCEDURE: Abdomen/Pelvis WO INDICATIONS: KUB-NO ORAL CONTRAST-KIDNEY STONE TECHNIQUE: Noncontrast 5 mm thick sections acquired from the diaphragms to the symphysis. 5 mm coronal and sagi ttal reformats were then performed. For radiation dose reduction, the following was used: automated exposure control, adjustment of mA and/or kV according to patient size. COMPARISON: CT abdomen pelvis without contrast, 06/29/2019. FINDINGS: Image quality: Excellent. ABDOMEN: Lung bases: Lung bases are clear. Heart size is normal. Solid organs: Liver and spleen are normal in size. Gallbladder is normal Pancreas is normal in con tours. No adrenal nodules. Kidneys are normal in size, without hydronephrosis or nephrolithiasis. Peritoneum and bowel: Unenhanced bowel loops demonstrate normal wall thickness and caliber. No free fluid or air. Nodes and vessels: No retroperitoneal or mesenteric adenopathy by size criteria. Aorta and inferior vena cava are normal in caliber. Miscellaneous: No ventral hernias. PELVIS: Genitourinary: Bladder wall thickness is normal. Miscellaneous: No inguinal hernias or adenopathy. Bones: No suspicious bony lesions. No vertebral body compression fractures. IMPRESSION: 1. Right hydronephrosis on the last exam is resolved. 2. Pelvis is obscured by metallic artifact from the right hip prosthesis. Reviewed by: Neil Sultana MD on 08/22/2019 4:00 PM PDT Approved by: Neil Sultana MD on 08/22/2019 4:00 PM PDT Station ID: [id number]
== END 2019-08-22 12:07 | disposition home or self-care (01) ==
LOC: DI 12:06
PROVIDERS: ATTEND Physician Assistant
DX: N20.1 Calculus of ureter (principal)
CPT/HCPCS: 74176

== ENCOUNTER 2020-04-23 07:15 | Outpatient (CLI) | payer MEDICAID ==
[2020-04-23 14:49] LABS: BASOPHILS # (AUTO) 0.1 10^3/uL (0.0-0.1); BASOPHILS % (AUTO) 1.1 %; EOSINOPHILS # (AUTO) 0.3 10^3/uL (0.0-0.7); EOSINOPHILS % (AUTO) 3.7 %; HCT - HEMATOCRIT 44.3 % (37.0-47.0); HGB - HEMOGLOBIN 14.1 g/dL (12.0-16.0); LYMPHOCYTES # (AUTO) 2.5 10^3/uL (1.5-3.5); LYMPHOCYTES % (AUTO) 35.5 %; MEAN CORPUSCULAR HGB CONC 31.8 g/dL (32.0-36.0); MEAN CORPUSCULAR VOLUME 94.3 fL (81.0-99.0); MEAN PLATELET VOLUME 10.4 fL (7.9-10.8); MONOCYTES # (AUTO) 0.5 10^3/uL (0.0-1.0); MONOCYTES % (AUTO) 7.5 %; NEUTROPHILS # (AUTO) 3.7 10^3/uL (1.5-6.6); NEUTROPHILS % (AUTO) 51.9 %; PLT - PLATELET COUNT 331 10^3/uL (130-450); RED CELL DISTRIBUTION WIDTH 14.2 % (12.0-15.0); WHITE BLOOD COUNT 7.1 x10^3/uL (4.8-10.8)
[2020-04-23 15:45] LABS: ALBUMIN 4.2 g/dL (3.2-5.5); ALBUMIN/GLOBULIN RATIO 1.5 (1.0-2.2); ALKALINE PHOSPHATASE 42 IU/L (42-121); ALT ALANINE AMINOTRANSFERASE 16 IU/L (10-60); AST ASPARTATE AMINOTRANSFERASE 18 IU/L (10-42); BILIRUBIN,TOTAL 0.5 mg/dL (0.2-1.0); BUN - BLOOD UREA NITROGEN 21 mg/dL (6-20); CALCIUM 9.2 mg/dL (8.5-10.3); CARBON DIOXIDE - CO2 26 mmol/L (21-32); CHLORIDE 101 mmol/L (101-111); CHOL/HDL RATIO 2.3 (<4.4); CHOLESTEROL 185 mg/dL; CREATININE 0.7 mg/dL (0.4-1.0); GFR - MDRD 87 (>89); GLUCOSE 88 mg/dL (70-100); HDL CHOLESTEROL 81 mg/dL; POTASSIUM 4.2 mmol/L (3.5-5.0); SODIUM 134 mmol/L (135-145); TRIGLYCERIDES 31 mg/dL
[2020-04-23 16:13] LABS: THYROID STIMULATING HORMONE 1.73 uIU/mL (0.34-5.60)
[2020-04-24 11:07] LABS: HEPATITIS C ANTIBODY NON-REACTIVE (NON-REACTIVE)
== END 2020-04-23 07:16 | disposition home or self-care (01) ==
LOC: LAB.S 07:15
PROVIDERS: ATTEND Registered Nurse
DX: Z01.84 Encounter for antibody response examination (principal); I10 Essential (primary) hypertension; F41.9 Anxiety disorder, unspecified; F32.9 Major depressive disorder, single episode, unspecified
CPT/HCPCS: 36415; 80053; 80061; 83721; 84443; 85025; 86803

== ENCOUNTER 2021-06-13 09:17 | Outpatient (CLI) | payer OTHER ==
[2021-06-13 15:29] LABS: BASOPHILS # (AUTO) 0.1 10^3/uL (0.0-0.1); BASOPHILS % (AUTO) 1.6 %; EOSINOPHILS # (AUTO) 0.3 10^3/uL (0.0-0.7); EOSINOPHILS % (AUTO) 4.6 %; HCT - HEMATOCRIT 40.2 % (37.0-47.0); HGB - HEMOGLOBIN 12.7 g/dL (12.0-16.0); LYMPHOCYTES # (AUTO) 3.2 10^3/uL (1.5-3.5); LYMPHOCYTES % (AUTO) 43.6 %; MEAN CORPUSCULAR HEMOGLOBIN 29.1 pg (27.0-31.0); MEAN CORPUSCULAR HGB CONC 31.6 g/dL (32.0-36.0); MEAN CORPUSCULAR VOLUME 92.2 fL (81.0-99.0); MEAN PLATELET VOLUME 9.8 fL (7.9-10.8); MONOCYTES # (AUTO) 0.5 10^3/uL (0.0-1.0); MONOCYTES % (AUTO) 6.4 %; NEUTROPHILS # (AUTO) 3.2 10^3/uL (1.5-6.6); NEUTROPHILS % (AUTO) 43.7 %; PLT - PLATELET COUNT 400 10^3/uL (130-450); RED BLOOD COUNT 4.36 10^6/uL (4.20-5.40); RED CELL DISTRIBUTION WIDTH 13.9 % (12.0-15.0); WHITE BLOOD COUNT 7.3 x10^3/uL (4.8-10.8)
[2021-06-13 15:51] LABS: ALBUMIN 3.9 g/dL (3.2-5.5); ALBUMIN/GLOBULIN RATIO 1.4 (1.0-2.2); ALKALINE PHOSPHATASE 40 IU/L (42-121); ALT ALANINE AMINOTRANSFERASE 15 IU/L (10-60); AST ASPARTATE AMINOTRANSFERASE 17 IU/L (10-42); BILIRUBIN,TOTAL 0.8 mg/dL (0.2-1.0); BUN - BLOOD UREA NITROGEN 19 mg/dL (6-20); CALCIUM 9.4 mg/dL (8.5-10.3); CARBON DIOXIDE - CO2 25 mmol/L (21-32); CHLORIDE 100 mmol/L (101-111); CHOL/HDL RATIO 2.2 (<4.4); CHOLESTEROL 195 mg/dL; CREATININE 0.8 mg/dL (0.4-1.0); GFR - MDRD 74 (>89); GLUCOSE 88 mg/dL (70-100); HDL CHOLESTEROL 87 mg/dL; POTASSIUM 4.7 mmol/L (3.5-5.0); SODIUM 132 mmol/L (135-145); TOTAL PROTEIN 6.7 g/dL (6.7-8.2); TRIGLYCERIDES 25 mg/dL
[2021-06-13 16:36] LABS: THYROID STIMULATING HORMONE 1.41 uIU/mL (0.34-5.60)
== END 2021-06-13 09:18 | disposition home or self-care (01) ==
LOC: LAB.S 09:17
PROVIDERS: ATTEND Registered Nurse
DX: Z00.00 Encounter for general adult medical examination without abnormal findings (principal); Z13.228 Encounter for screening for other metabolic disorders; Z13.29 Encounter for screening for other suspected endocrine disorder; Z13.0 Encounter for screening for diseases of the blood and blood-forming organs and certain disorders involving the immune mechanism; I10 Essential (primary) hypertension
CPT/HCPCS: 36415; 80053; 80061; 83721; 84443; 85025

== ENCOUNTER 2021-09-08 09:57 | Outpatient (CLI) | payer OTHER ==
--- NOTE | 2021-09-08 11:58 | Mammography Report ---
BILATERAL DIGITAL SCREENING MAMMOGRAM 3D/2D: 09/08/2021 CLINICAL: Routine screening. Comparison is made to exams dated: 03/06/2019 mammogram, 01/12/2017 mammogram, and 07/10/2013 mammogra m - [facility]. There are scattered fibroglandular elements in both breasts. No significant masses, calcifications, or other findings are seen in either breast. There has been no significant interval change. IMPRESSION: NEGATIVE There is no mammographic evidence of malignancy. A 1 year screening mammogram is recommended. Based on the Tyrer Cuzick model (a risk assessment model) the patients lifetime risk is 7.3% and her 10 year risk is 2.7%. According to the ACR, ACS, and NCCN guidelines, an annual breast MRI exam chet g with mammogram is recommended if the patients lifetime risk is 20% or greater. This exam was interpreted at Station ID: [id number]. NOTE: For mammograms, a report in lay terms will be sent to the patient. Approximately 15% of breast malignancies will not be visualized mammographically. In the management of a palpable breast mass, a negative mammogram must not discourage biopsy of a clinically suspicious lesion. Electronically Signed By: Taras Rizo acr/penrad:09/08/2021 10:49:43 ACR BI-RADS Category 1: Negative 3341F PARENCHYMAL PATTERN: (A) - The breast(s) demonstrate(s) scattered fibroglandular densities. BI-RADS CATEGORY: (1) - 1 RECOMMENDATION: (ANNUAL) - Recommend routine annual screening mammography. [id number] 1 year screening LATERALITY: (B)
== END 2021-09-08 09:58 | disposition home or self-care (01) ==
LOC: DI 09:57
PROVIDERS: ATTEND Registered Nurse
DX: Z12.31 Encounter for screening mammogram for malignant neoplasm of breast (principal)

== ENCOUNTER 2022-07-09 07:05 | Outpatient (CLI) | payer OTHER ==
[2022-07-09 15:00] LABS: BASOPHILS # (AUTO) 0.1 10^3/uL (0.0-0.1); BASOPHILS % (AUTO) 2.2 %; EOSINOPHILS # (AUTO) 0.3 10^3/uL (0.0-0.7); EOSINOPHILS % (AUTO) 4.1 %; HCT - HEMATOCRIT 44.5 % (37.0-47.0); HGB - HEMOGLOBIN 14.2 g/dL (12.0-16.0); LYMPHOCYTES # (AUTO) 2.4 10^3/uL (1.5-3.5); LYMPHOCYTES % (AUTO) 38.1 %; MEAN CORPUSCULAR HEMOGLOBIN 30.3 pg (27.0-31.0); MEAN CORPUSCULAR HGB CONC 31.9 g/dL (32.0-36.0); MEAN CORPUSCULAR VOLUME 95.1 fL (81.0-99.0); MONOCYTES # (AUTO) 0.5 10^3/uL (0.0-1.0); MONOCYTES % (AUTO) 7.7 %; NEUTROPHILS # (AUTO) 3.1 10^3/uL (1.5-6.6); NEUTROPHILS % (AUTO) 47.6 %; PLT - PLATELET COUNT 346 10^3/uL (130-450); RED BLOOD COUNT 4.68 10^6/uL (4.20-5.40); WHITE BLOOD COUNT 6.4 x10^3/uL (4.8-10.8)
[2022-07-09 15:39] LABS: THYROID STIMULATING HORMONE 2.26 uIU/mL (0.34-5.60)
[2022-07-09 16:20] LABS: ALBUMIN 4.2 g/dL (3.2-5.5); ALBUMIN/GLOBULIN RATIO 1.3 (1.0-2.2); ALKALINE PHOSPHATASE 37 IU/L (42-121); ALT ALANINE AMINOTRANSFERASE 18 IU/L (10-60); AST ASPARTATE AMINOTRANSFERASE 19 IU/L (10-42); BILIRUBIN,TOTAL 0.6 mg/dL (0.2-1.0); BUN - BLOOD UREA NITROGEN 20 mg/dL (6-20); CALCIUM 9.8 mg/dL (8.5-10.3); CARBON DIOXIDE - CO2 28 mmol/L (21-32); CHLORIDE 102 mmol/L (101-111); CHOL/HDL RATIO 2.3 (<4.4); CHOLESTEROL 209 mg/dL; CREATININE 0.7 mg/dL (0.4-1.0); GFR - MDRD 86 (>89); GLUCOSE 94 mg/dL (70-100); HDL CHOLESTEROL 91 mg/dL; POTASSIUM 4.6 mmol/L (3.5-5.0); SODIUM 138 mmol/L (135-145); TOTAL PROTEIN 7.4 g/dL (6.7-8.2); TRIGLYCERIDES 34 mg/dL
== END 2022-07-09 07:06 | disposition home or self-care (01) ==
LOC: LAB.S 07:05
PROVIDERS: ATTEND Registered Nurse
DX: Z79.899 Other long term (current) drug therapy (principal); Z13.220 Encounter for screening for lipoid disorders; Z13.29 Encounter for screening for other suspected endocrine disorder
CPT/HCPCS: 36415; 80053; 80061; 83721; 84443; 85025

== ENCOUNTER 2022-10-20 07:26 | Outpatient (CLI) | payer OTHER ==
[2022-10-20 16:06] LABS: THYROID STIMULATING HORMONE 3.41 uIU/mL (0.34-5.60)
[2022-10-21 06:11] LABS: ESTRADIOL 13.4 pg/mL (.); PROGESTERONE 0.2 ng/mL (.)
[2022-10-21 19:07] LABS: FREE TESTOSTERONE(DIRECT) 10.9 pg/mL (0.0-4.2)
== END 2022-10-20 07:27 | disposition home or self-care (01) ==
LOC: LAB.S 07:26
PROVIDERS: ATTEND Obstetrics & Gynecology
DX: N95.9 Unspecified menopausal and perimenopausal disorder (principal); Z13.29 Encounter for screening for other suspected endocrine disorder
CPT/HCPCS: 36415; 82533; 82670; 84144; 84402; 84403; 84436; 84443; 84480

== ENCOUNTER 2022-10-26 10:03 | Outpatient (CLI) | payer OTHER ==
[2022-10-26 15:26] LABS: CA 125 12.3 U/mL (0.5-35.0)
== END 2022-10-26 10:04 | disposition home or self-care (01) ==
LOC: LAB.S 10:03
PROVIDERS: ATTEND Obstetrics & Gynecology
DX: R79.89 Other specified abnormal findings of blood chemistry (principal)
CPT/HCPCS: 36415; 81599; 82105; 82626; 83001; 83520; 84443; 86304

== ENCOUNTER 2022-12-03 12:10 | Outpatient (CLI) | payer MEDICAID ==
[2022-12-03 12:42] LABS: CREATININE 0.8 mg/dL (0.6-1.3)
== END 2022-12-03 12:11 | disposition home or self-care (01) ==
LOC: LAB 12:10
PROVIDERS: ATTEND Obstetrics & Gynecology
DX: R79.89 Other specified abnormal findings of blood chemistry (principal)
CPT/HCPCS: 36415; 82565

== ENCOUNTER 2022-12-17 13:46 | Outpatient (CLI) | payer MEDICAID ==
[2022-12-17] MEDS ORDERED: iohexoL-300 100 ML VIAL IVP ONE (14:54)
--- NOTE | 2022-12-17 17:04 | CT Report ---
PROCEDURE: ABDOMEN W/WO INDICATIONS: ELEVATED TESTOSTERONE CONTRAST: 100ml omni 300 TECHNIQUE: 4 phase scanning was performed. After the administration of intravenous contrast, 5 mm thick section s acquired from the diaphragm to the symphysis. 5 mm coronal and sagittal reformats were acquired. For radiation dose reduction, the following was used: automated exposure control, adjustment of mA a nd/or kV according to patient size. COMPARISON: CT abdomen pelvis 08/22/2019. FINDINGS: Image quality: Excellent. Lung bases and heart: Unremarkable. Liver: No focal lesion. Gallbladder and biliary tree: No radiopaque stones or wall thickening. No biliary dilation. Spleen: No splenomegaly. Pancreas: No pancreatic ductal dilation. Adrenals: No adrenal nodule. Kidneys and ureters: No hydronephrosis. No renal cystic lesion which requires follow up. No solid mas s. Bowel and peritoneum: No bowel distension. No pathologic free fluid. Lymph nodes: No central or retroperitoneal adenopathy. Vessels: No infrarenal aortic aneurysm. Bones: No aggressive osseous abnormality. Other: No significant ventral hernia. IMPRESSION: 1. No adrenal nodule. No mass. No adenopathy. 2. No kidney stones. No hydronephrosis. Reviewed by: Junior Rowan MD on 12/17/2022 5:03 PM PDT Approved by: Junior Rowan MD on 12/17/2022 5:03 PM PDT Station ID: [id number]
== END 2022-12-17 13:47 | disposition home or self-care (01) ==
LOC: DI 13:46
PROVIDERS: ATTEND Obstetrics & Gynecology
DX: R79.89 Other specified abnormal findings of blood chemistry (principal)
CPT/HCPCS: 74170; Q9967

== ENCOUNTER 2023-04-20 07:26 | Outpatient (CLI) | payer MEDICAID | END 2023-04-20 07:27 | disposition home or self-care (01) | LOC: LAB.S 07:26 | PROVIDERS: ATTEND Student in an Organized Health Care Education/Training Program | DX: E66.9 Obesity, unspecified (principal) | CPT/HCPCS: 36415; 81599; 82024; 82533 ==

== ENCOUNTER 2023-04-26 07:11 | Outpatient (CLI) | payer MEDICAID ==
[2023-04-26 16:56] LABS: ALBUMIN 4.5 g/dL (3.2-5.5); ALBUMIN/GLOBULIN RATIO 1.6 (1.0-2.2); BILIRUBIN,TOTAL 0.5 mg/dL (0.2-1.0); CALCIUM 10.2 mg/dL (8.5-10.3); CREATININE 0.7 mg/dL (0.6-1.3); POTASSIUM 4.4 mmol/L (3.5-4.5); TOTAL PROTEIN 7.3 g/dL (6.4-8.9)
[2023-04-26 22:37] LABS: ESTIMATED AVERAGE GLUCOSE 117 mg/dL (70-100); HEMOGLOBIN A1c% 5.7 % (4.27-6.07)
== END 2023-04-26 07:12 | disposition home or self-care (01) ==
LOC: LAB.S 07:11
PROVIDERS: ATTEND Student in an Organized Health Care Education/Training Program
DX: R79.89 Other specified abnormal findings of blood chemistry (principal); R63.5 Abnormal weight gain; Z83.3 Family history of diabetes mellitus
CPT/HCPCS: 36415; 80053; 82024; 82533; 82627; 83036; 84403; 85025

== ENCOUNTER 2023-06-14 07:31 | Outpatient (CLI) | payer MEDICAID | END 2023-06-14 07:32 | disposition home or self-care (01) | LOC: LAB.S 07:31 | PROVIDERS: ATTEND Student in an Organized Health Care Education/Training Program | DX: R79.89 Other specified abnormal findings of blood chemistry (principal) | CPT/HCPCS: 36415; 82626; 82627; 84403 ==

== ENCOUNTER 2023-08-05 10:49 | Emergency (ER) | payer MEDICAID ==
[2023-08-05 11:05] LABS: BILIRUBIN,URINE NEGATIVE (NEGATIVE); GLUCOSE, URINE (UA) NEGATIVE (NEGATIVE); KETONES,URINE (UA) NEGATIVE (NEGATIVE); LEUKOCYTE ESTERASE, URINE MODERATE (NEGATIVE); NITRITE,URINE NEGATIVE (NEGATIVE); OCCULT BLOOD,URINE NEGATIVE (NEGATIVE); PROTEIN,URINE NEGATIVE (NEGATIVE); UROBILINOGEN,URINE 0.2 (NORMAL) E.U./dL (NORMAL)
[2023-08-05 11:06] LABS: CLARITY,URINE CLEAR (CLEAR)
[2023-08-05 11:09] VITALS: O2SAT 100
[2023-08-05 11:12] LABS: BASOPHILS # (AUTO) 0.1 10^3/uL (0.0-0.1); BASOPHILS % (AUTO) 1.2 %; EOSINOPHILS # (AUTO) 0.1 10^3/uL (0.0-0.7); EOSINOPHILS % (AUTO) 1.6 %; HCT - HEMATOCRIT 44.3 % (37.0-47.0); HGB - HEMOGLOBIN 14.1 g/dL (12.0-16.0); LYMPHOCYTES # (AUTO) 2.8 10^3/uL (1.5-3.5); LYMPHOCYTES % (AUTO) 32.9 %; MEAN CORPUSCULAR HEMOGLOBIN 29.4 pg (27.0-31.0); MEAN CORPUSCULAR HGB CONC 31.8 g/dL (32.0-36.0); MEAN CORPUSCULAR VOLUME 92.5 fL (81.0-99.0); MEAN PLATELET VOLUME 9.1 fL (7.9-10.8); MONOCYTES # (AUTO) 0.4 10^3/uL (0.0-1.0); MONOCYTES % (AUTO) 5.1 %; NEUTROPHILS # (AUTO) 5.1 10^3/uL (1.5-6.6); PLT - PLATELET COUNT 350 10^3/uL (130-450); RED BLOOD COUNT 4.79 10^6/uL (4.20-5.40); RED CELL DISTRIBUTION WIDTH 13.2 % (12.0-15.0); WHITE BLOOD COUNT 8.6 x10^3/uL (4.8-10.8)
[2023-08-05 11:13] LABS: BACTERIA,URINE Few /HPF (None Seen); MUCUS,URINE Marked Strands; RBC,URINE 0-5 /HPF (0-5); SQUAMOUS EPITHELIAL CELL,UR MANY Squamous (<= Few)
--- NOTE | 2023-08-05 11:15 | ED Physician Documentation ---
PD HPI ABD PAIN - Stated complaint Stated Complaint: RT SIDE PX - Chief complaint Chief Complaint: Abd Pain - Additional information Additional information: 57-year-old female presents emergency department for right flank pain. Patient says that this started today she originally went into the walk-in clinic for evaluation and they sent her to the emergency department. No nausea or vomiting no recent fevers she does endorse some being very cold right now no dysuria no urinary urgency. She does have a history of kidney stones and says this feels similar to those kidney stones in the past. PD PAST MEDICAL HISTORY - Past Medical History Cardiovascular: None Respiratory: None Neuro: None Endocrine/Autoimmune: None GI: None STRATEGIC BUSINESS DEVELOPMENT: None : None HEENT: None Psych: Depression, Anxiety, Panic attacks, Post traumatic stress disorder Musculoskeletal: Other Derm: Rosacea - Past Surgical History Past Surgical History: Yes Ortho: Other /STRATEGIC BUSINESS DEVELOPMENT: Other - Present Medications Home Medications: Ambulatory Orders Medication Instructions Recorded Confirmed Aspirin [Aspir-Low] 81 mg PO DAILY 04/07/16 11/10/16 Butalbital/Acetaminophen 1 each PO PRN PRN 04/07/16 11/10/16 [Acetaminophn-Butalbital 325-50] Fluoxetine HCl 40 mg PO DAILY 04/07/16 11/10/16 Propranolol [Inderal] 40 mg PO DAILY 04/07/16 11/10/16 Vit A and D3 in Cod Liver Oil [Cod 1,000 mg PO DAILY 04/07/16 11/10/16 Liver Oil Softgel] Albuterol Sulf [Ventolin Hfa 1 inh INH .FREQ PRN 04/08/16 11/10/16 Inhaler] HYDROcod/ACETAM 5/325 [Vicodin 1 - 2 ea PO Q6H PRN #15 tablet 08/03/16 11/10/16 5/325] HYDROcod/ACETAM 5/325 [[place] 5/325] 1 - 2 ea PO Q6H PRN #15 tablet 11/10/16 Hydrocodone/Acetaminophen 1 - 2 each PO Q6H PRN #14 tablet 06/29/19 [Hydrocodon-Acetaminophen 5-325] Sulfamethoxazole/Trimethoprim 1 each PO BID #14 tablet 06/29/19 [Sulfamethoxazole-Tmp Ds Tablet] Cefpodoxime Proxetil [Vantin] 200 mg PO Q12H 12 Days #48 tablet 08/05/23 Naproxen 500 mg PO BID 14 Days #28 cap 08/05/23 - Allergies Allergies/Adverse Reactions: Allergies Allergy/AdvReac Type Severity Reaction Status Date / Time codeine AdvReac Severe passed out Verified 08/05/23 11:01 - Social History Does the pt smoke?: No Smoking Status: Never smoker Does the pt drink ETOH?: Yes Does the pt have substance abuse?: No - Immunizations Immunizations are current?: Yes - POLST Patient has POLST: No PD ED PE NORMAL - Vitals Vital signs reviewed: Yes - General General: Alert and oriented X 3, No acute distress, Well developed/nourished - Respiratory Respiratory: No respiratory distress - Back Back: Other (Right CVA tenderness no CVA tenderness on the left) - Derm Derm: Normal color, Warm and dry, No rash - Psych Psych: Normal mood Results - Vitals Vitals: Vital Signs - 24 hr 08/05/23 08/05/23 10:57 12:06 Temperature 36.8 C Heart Rate 86 60 Respiratory 18 18 Rate Blood Pressure 143/74 H 144/85 H O2 Saturation 100 100 Oxygen O2 Source Room air - Labs Labs: Laboratory Tests 08/05/23 08/05/23 08/05/23 10:59 11:00 11:00 WBC 8.6 RBC 4.79 Hgb 14.1 Hct 44.3 MCV 92.5 MCH 29.4 MCHC 31.8 L RDW 13.2 Plt Count 350 MPV 9.1 Neut # (Auto) 5.1 Lymph # (Auto) 2.8 [place] # (Auto) 0.4 Eos # (Auto) 0.1 Baso # (Auto) 0.1 Absolute Nucleated RBC 0.00 Nucleated RBC % 0.0 Sodium 132 L Potassium 3.6 Chloride 97 L Carbon Dioxide 28 Anion Gap 7.0 BUN 15 Creatinine 0.8 Estimated GFR (MDRD) 73 L Glucose 100 Calcium 10.4 H Total Bilirubin 0.6 AST 16 ALT 17 Alkaline Phosphatase 47 Total Protein 7.7 Albumin 4.9 Globulin 2.8 Albumin/Globulin Ratio 1.8 Lipase < 10 L Urine Color YELLOW Urine Clarity CLEAR Urine pH 6.0 Ur Specific [place] 1.020 Urine Protein NEGATIVE Urine Glucose (UA) NEGATIVE Urine Ketones NEGATIVE Urine Occult Blood NEGATIVE Urine Nitrite NEGATIVE Urine Bilirubin NEGATIVE Urine Urobilinogen 0.2 (NORMAL) Ur Leukocyte Esterase MODERATE H Urine RBC 0-5 Urine WBC 6-10 H Ur Squamous Epith Cells MANY Squamous H Urine Bacteria Few Urine Mucus Marked Strands Ur Microscopic Review INDICATED Urine Culture Comments NOT INDICATED - Rads (name of study) CT KUB Relevant Findings:: Final report received, EMP independent interpretation of test, Other (No hydronephrosis or obstructing renal stone no acute findings within the abdomen pelvis diverticulosis without evidence of diverticulitis) PD Medical Decision Making - ED course ED course: 57-year-old female presents emergency department for right flank pain. Labs are complete for further evaluation and were found to be unremarkable no leukocytosis mild hyponatremia 132 and other than that normal labs. Calcium is very minimally elevated at 10.4. Patient was given a liter of IV fluids this is most likely due to dehydration. Urinalysis does not show any hematuria she did test positive for leukocytes and mild WBCs although many squamous cells. Urine was sent for cultures for further evaluation. CT scan was complete and did not reveal any hydronephrosis or renal calculi no other acute findings that could be contributing to this right flank at this point in time are identified. I will go ahead and treat this as if it is a pyelonephritis she was given a dose of IV Rocephin here in the emergency department as well as a liter of IV fluids and a one-time dose of Toradol and Dilaudid and Zofran. I have sent a prescription of cefpodoxime to her preferred pharmacy on file as well as naproxen strict ER return precautions given patient was informed that we will call her in a couple days if she needs to change antibiotics all questions answered patient is safe for discharge at this time. Departure - Departure Disposition: 01 Home, Self Care Clinical Impression: Pyelonephritis Instructions: Pyelonephritis Dc, ED Kidney Infec Female Prescriptions: Naproxen 500 mg PO BID 14 Days #28 cap Cefpodoxime Proxetil [Vantin] 200 mg PO Q12H 12 Days #48 tablet Comments: Thank you for trusting us with your care. You do appear to have a urinary tract infection which is what I believe is causing your right flank pain causing a kidney infection. We have given you 1 dose of IV Rocephin here in the emergency department I have sent a prescription of cefpodoxime to your preferred pharmacy. You will pick this up first thing tomorrow and take it twice a day for the next 12 days. We will call you in a couple days with urinalysis results if you need to change antibiotics if you do not need to hear from us and that means that your urine is sensitive to cefpodoxime. In the next 48 hours if you have taken all prescribed antibiotics and your symptoms have gotten any worse please come back into the emergency department for further evaluation. I have also sent a prescription of naproxen 500 mg tablets you can take 500 mg every 12 hours for pain and also you can take 1000 mg of Tylenol every 8 hours for pain apply heating pads to right flank area and you should start to feel better soon. Again please do not hesitate to come back to the emergency department for further evaluation as needed. Wishing a speedy recovery. Forms: PCP List
[2023-08-05] MEDS: KETOROLAC 30 MG/ML VIAL IVP STA (11:17)
--- NOTE | 2023-08-05 11:27 | CT Report ---
PROCEDURE: Abdomen/Pelvis WO INDICATIONS: R flank/back pain, h/o kidney stones TECHNIQUE: A CT scan of the abdomen and pelvis was performed without the use of intravenous contrast. Images we re recorded and evaluated at appropriate window settings. Reformats: coronal and sagittal. For radiat ion dose reduction, the following was used: automated exposure control, adjustment of mA and/or kV ac cording to patient size. COMPARISON: 12/17/2022. FINDINGS: Image quality: Diagnostic. Lower chest: Unremarkable. Liver: No contour-deforming mass. Gallbladder: No radiopaque stones or wall thickening. Biliary tree: No intrahepatic or extrahepatic dilation, accounting for age. Spleen: No splenomegaly. Pancreas: No pancreatic ductal dilation. Adrenals: No adrenal nodule. Kidneys and ureters: No hydronephrosis. No contour-deforming mass. Stomach, bowel and peritoneum: No gastric or small bowel dilation. No abnormal wall thickening. No pa thologic free fluid. Diverticulosis without evidence of diverticulitis. Normal appendix. Lymph nodes: No central or retroperitoneal adenopathy. Vessels: No infrarenal aortic aneurysm. Atherosclerotic vascular calcifications Reproductive organs: Unremarkable. Bladder: Decompressed, limiting evaluation. No calcified bladder stones. Pelvic lymph nodes: No adenopathy by size criteria. Bones: No aggressive osseous abnormality. Right hip arthroplasty. Degenerative changes of the spine. Other: No significant ventral or inguinal hernia. IMPRESSION: 1.No hydronephrosis or obstructing renal stone. 2.No acute findings within the abdomen or pelvis. 3.Diverticulosis without evidence of diverticulitis. Reviewed by: Carlos Armijo MD on 08/05/2023 11:26 AM PDT Approved by: Carlos Armijo MD on 08/05/2023 11:26 AM PDT Station ID: [id number]
[2023-08-05 11:30] LABS: ALBUMIN 4.9 g/dL (3.2-5.5); ALBUMIN/GLOBULIN RATIO 1.8 (1.0-2.2); ALKALINE PHOSPHATASE 47 IU/L (42-121); ALT ALANINE AMINOTRANSFERASE 17 IU/L (10-60); AST ASPARTATE AMINOTRANSFERASE 16 IU/L (10-42); BILIRUBIN,TOTAL 0.6 mg/dL (0.2-1.0); BUN - BLOOD UREA NITROGEN 15 mg/dL (6-20); CALCIUM 10.4 mg/dL (8.5-10.3); CARBON DIOXIDE - CO2 28 mmol/L (21-32); CHLORIDE 97 mmol/L (101-111); CREATININE 0.8 mg/dL (0.6-1.3); GFR - MDRD 73 (>89); GLUCOSE 100 mg/dL (74-104); POTASSIUM 3.6 mmol/L (3.5-4.5); SODIUM 132 mmol/L (135-145); TOTAL PROTEIN 7.7 g/dL (6.4-8.9)
[2023-08-05 11:31] LABS: LIPASE < 10 U/L (11-82)
[2023-08-05] MEDS: cefTRIAXone 1 GM in SODIUM CHLORIDE 0.9% MINIBAG 100 ML IV STA (12:33)
[2023-08-05] MEDS: SODIUM CHLORIDE 0.9% 1,000 ML IV ONE (12:33)
[2023-08-05] MEDS: ONDANSETRON 4 MG/2 ML VIAL IVP STA (13:43)
[2023-08-05] MEDS: HYDROmorphone 0.5 MG/0.5 ML SYRINGE IVP STA (13:43)
[2023-08-05 14:36] VITALS: BP 140/91
== END 2023-08-05 14:27 | disposition home or self-care (01) ==
LOC: ED 10:49
DX: N12 Tubulo-interstitial nephritis, not specified as acute or chronic (principal); E83.52 Hypercalcemia; E87.1 Hypo-osmolality and hyponatremia; Z87.442 Personal history of urinary calculi
CPT/HCPCS: 36415; 74176; 80053; 81001; 83690; 85025; 87086; 96365; 96375; 99285; J1170; 81003